=== PATIENT | male | born 1990 | race Caucasian/White ===

== ENCOUNTER 2022-08-14 09:28 | Outpatient (CLI) | payer OTHER | END 2022-08-14 09:29 | disposition home or self-care (01) | LOC: EDSEX 09:28 → CSHRAD 09:28 | PROVIDERS: ATTEND Orthopaedic Surgery | DX: M54.50 Low back pain, unspecified (principal); M47.816 Spondylosis without myelopathy or radiculopathy, lumbar region | CPT/HCPCS: 72100 ==

== ENCOUNTER 2022-09-01 08:09 | Outpatient (CLI) | payer OTHER | END 2022-09-01 08:10 | disposition home or self-care (01) | LOC: CSHMRI 08:09 | PROVIDERS: ATTEND Orthopaedic Surgery | DX: M51.27 Other intervertebral disc displacement, lumbosacral region (principal); M54.16 Radiculopathy, lumbar region; M47.816 Spondylosis without myelopathy or radiculopathy, lumbar region | CPT/HCPCS: 72148 ==